=== PATIENT | male | born 1960 | race Two or more races ===

== ENCOUNTER 2021-02-09 07:24 | Emergency (ER) | payer BC ==
[~2021-02-09] VITALS: Ht 182.9 cm; Wt 97.5 kg
[~2021-02-09 07:24] MED LIST: LIPITOR20 MG PO; PREVACID30 MG PO
[2021-02-09] MEDS ORDERED: SIMVASTATIN10 MG (07:44)
[2021-02-09] MEDS ORDERED: BAYER THERAPY325 MG (07:45)
[2021-02-09] MEDS ORDERED: AMOX-CLAV 875-1 EACH PO (12:54)
[2021-02-09] MEDS ORDERED: KETO10TA2 PO (12:54)
== END 2021-02-09 13:34 | disposition home or self-care (01) ==
LOC: ER 07:24
DX: M79.672 Pain in left foot (principal)